=== PATIENT | female | born 1975 | race Caucasian/White ===

== ENCOUNTER 2023-04-04 14:09 | Emergency (ER) | payer OTHER, BC ==
[~2023-04-04] VITALS: Ht 167.6 cm; Wt 105.2 kg
== END 2023-04-04 16:18 | disposition home or self-care (01) ==
LOC: ED 14:09
DX: S20.212A Contusion of left front wall of thorax, initial encounter (principal); Z88.5 Allergy status to narcotic agent; W10.8XXA Fall (on) (from) other stairs and steps, initial encounter; Y93.89 Activity, other specified; Y92.89 Other specified places as the place of occurrence of the external cause; Y99.0 Civilian activity done for income or pay

== ENCOUNTER → 2024-02-07 | Outpatient (CLI) | payer OTHER | END | disposition home or self-care (01) | LOC: RAD 09:04 | PROVIDERS: ATTEND Chiropractor | DX: M41.34 Thoracogenic scoliosis, thoracic region (principal); R07.89 Other chest pain ==